=== PATIENT | female | born 1945 | race Caucasian/White ===

== ENCOUNTER 2018-08-11 16:44 | Observation (INO) | payer MEDICARE ==
[2018-08-11] MEDS ORDERED: Sodium Chloride 0.9% 2.5 ML Syringe FLUSH PRN (16:52)
[2018-08-11] MEDS ORDERED: Sodium Chloride 0.9% 10 ML Syringe FLUSH PRN (16:52)
[2018-08-11] MEDS ORDERED: Sodium Chloride 0.9% 10 ML SDV IV PRN (16:52)
--- NOTE | 2018-08-11 17:03 | EDM.PDOC ---
ED HPI GENERAL MEDICAL PROBLEM - General Chief Complaint: Lower Extremity Injury/Pain Stated Complaint: TOE CHANGING COLORS Time Seen by Provider: 08/11/18 16:47 Source of Information: Reports: Patient History Limitations: Reports: No Limitations - History of Present Illness INITIAL COMMENTS - FREE TEXT/NARRATIVE: HISTORY AND PHYSICAL: Stroke code was called upon patient arrival. Dr Torres was involved in patient care. History of present illness: Patient is a 73-year-old female who presents to the emergency room with complaints of right sided facial and right upper extremity tingling/decreased sensation, feeling tremulous increased forgetfulness, and slurred speech x 2 days. Patient initially came for complaints of a bruise of the right second distal toe. Patient's sister, who is accompanied the patient, suggested she also be evaluated for the tingling sensation and decreased sensation of her right side. Denies any injury, trauma or falls. States she is under a lot of stress recently: just came from [place] (primary residence), has had multiple deaths in the family, and other family issues. Patient denies any fever, chills, headache, change in vision, syncope or near syncope. Denies any chest pain, back pain, shortness of breath or cough. Denies any abdominal pain, nausea, vomiting, diarrhea, constipation or dysuria. Patient has been eating and drinking appropriately. Past medical history of hypertension, DM 2, and depression. Review of systems: As per history of present illness and below otherwise all systems reviewed and negative. Past medical history: As per history of present illness and as reviewed below otherwise noncontributory. Surgical history: As per history of present illness and as reviewed below otherwise noncontributory. Social history: See social history for further information Family history: As per history of present illness and as reviewed below otherwise noncontributory. Physical exam: General: Well-developed and well-nourished 73-year-old female. Alert and oriented. Nontoxic appearing and in no acute distress. HEENT: Atraumatic, normocephalic, pupils equal and reactive bilaterally, negative for conjunctival pallor or scleral icterus, mucous membranes moist, TMs normal bilaterally, throat clear, neck supple, nontender, trachea midline. No drooling or trismus noted. No meningeal signs. No hot potato voice noted. Lungs: Clear to auscultation, breath sounds equal bilaterally, chest nontender. Heart: S1S2, regular rate and rhythm without overt murmur Abdomen: Soft, nondistended, nontender. Negative for masses or hepatosplenomegaly. Negative for costovertebral tenderness. Pelvis: Stable nontender. Genitourinary: Deferred. Rectal: Deferred. Skin: Intact, warm, dry. No lesions or rashes noted. Extremities: Atraumatic, moves all extremities per self without difficulty or deficits, patient is fully ambulatory without any difficulty or ataxia. Neurovascular unremarkable. Neuro: Awake, alert, oriented. Cranial nerves II through XII unremarkable. Cerebellum unremarkable. Motor and sensory unremarkable throughout. Exam nonfocal. Notes: GCS: 15. NIH 1 (peripheral visual change of right side). Vital signs are stable. Negative head CT. Patient does have a urinary tract infection and a slightly elevated BUN and creatinine. IV fluids and antibiotics are running. Dr. Lama was consulted on this case and he is agreeable to observing this patient overnight with telemetry. Patient is aware and agreeable to plan of care. Diagnostics: CBC, CMP, PT/INR, UA, TSH, head CT, one view chest, right second toe x-ray Therapeutics: Normal saline, Rocephin Impression: UTI TIA Plan: Observation admission with Telemetry Definitive disposition and diagnosis as appropriate pending reevaluation and review of above. Right Toe-Middle Pain Score (Numeric/FACES): 6 - Related Data Home Meds: Home Meds Allopurinol [Zyloprim] 100 mg PO DAILY 08/11/18 [History] Aspirin 81 mg PO DAILY 08/11/18 [History] Cholecalciferol (Vitamin D3) [Vitamin D] 5,000 unit PO DAILY 08/11/18 [History] Docusate Sodium 100 mg PO DAILY 08/11/18 [History] Dulaglutide [Trulicity] 1.5 mg SQ DAILY 08/11/18 [History] Estrogens, Conjugated [Premarin] 0.625 mg PO DAILY 08/11/18 [History] Fluticasone Propion/Salmeterol [Fluticasone-Salmeterol 100-50] 1 each IH DAILY 08/11/18 [History] Furosemide [Lasix] 20 mg PO DAILY 08/11/18 [History] Levothyroxine 75 mcg PO ACBREAKFAST 08/11/18 [History] Losartan [Cozaar] 50 mg PO DAILY 08/11/18 [History] Mirabegron [Myrbetriq] 25 mg PO DAILY 08/11/18 [History] Omeprazole 20 mg PO DAILY 08/11/18 [History] Potassium Chloride 10 meq PO DAILY 08/11/18 [History] Sertraline [Zoloft] 100 mg PO DAILY 08/11/18 [History] Simvastatin [Zocor] 40 mg PO BEDTIME 08/11/18 [History] Valsartan 160 mg PO DAILY 08/11/18 [History] Valsartan/Hydrochlorothiazide [Valsartan-Hctz 160-25 mg Tab] 1 each PO DAILY [History] buPROPion [Wellbutrin SR] 150 mg PO DAILY 08/11/18 [History] hydroCHLOROthiazide [Hydrochlorothiazide] 25 mg PO DAILY 08/11/18 [History] metFORMIN [Glucophage XR] 750 mg PO DAILY 08/11/18 [History] Review of Systems - Review of Systems Review Of Systems: ROS reveals no pertinent complaints other than HPI. ED EXAM, GENERAL - Physical Exam Exam: See Below (See dictation) Course - Vital Signs Last Recorded V/S: Last Vital Signs Temp 98.1 F 08/11/18 17:14 Pulse 106 H 08/11/18 17:14 Resp 18 08/11/18 17:14 BP 154/80 H 08/11/18 17:14 Pulse Ox 94 L 08/11/18 17:14 - Orders/Labs/Meds Orders: Active Orders 24 hr Category Date Time Status Admission Status [Patient Status] [ADT] Stat ADT 08/11/18 18:06 Ordered Assess Neurological Status [RC] ASDIRECTED Care 08/11/18 16:52 Active EKG Documentation Completion [RC] STAT Care 08/11/18 16:52 Active Initiate Acute Stroke Protocol [RC] STAT Care 08/11/18 16:52 Active NIH Stroke Scale [RC] ASDIRECTED Care 08/11/18 16:52 Active Oxygen Therapy [RC] ASDIRECTED Care 08/11/18 16:52 Active Sodium Chloride 0.9% [Normal Saline] Med 08/11/18 16:52 Active 10 ml IV ASDIRECTED PRN Sodium Chloride 0.9% [Normal Saline] 1,000 ml Med 08/11/18 17:40 Active IV STAT Sodium Chloride 0.9% [Saline Flush] Med 08/11/18 16:52 Active 10 ml FLUSH ASDIRECTED PRN Sodium Chloride 0.9% [Saline Flush] Med 08/11/18 16:52 Active 2.5 ml FLUSH ASDIRECTED PRN cefTRIAXone [Rocephin in Dextrose,Iso-Osm 1 GM/50 ML] 1 Med 08/11/18 18:06 Ordered gm Premix Bag 1 bag IV ONETIME Peripheral IV Insertion Adult [OM.PC] Stat Oth 08/11/18 16:52 Ordered Medication Orders Sodium Chloride (Normal Saline) 1,000 mls @ 100 mls/hr IV STAT ONE Stop: 08/12/18 03:39 Ceftriaxone Sodium/Dextrose 1 (gm/ Premix) 50 mls @ 100 mls/hr IV ONETIME ONE Stop: 08/11/18 18:35 Sodium Chloride (Saline Flush) 10 ml FLUSH ASDIRECTED PRN PRN Reason: Keep Vein Open Sodium Chloride (Saline Flush) 2.5 ml FLUSH ASDIRECTED PRN PRN Reason: Keep Vein Open Sodium Chloride (Normal Saline) 10 ml IV ASDIRECTED PRN PRN Reason: IV Use Labs: Laboratory Tests 08/11/18 08/11/18 08/11/18 Range/Units 16:53 16:53 16:53 WBC 10.82 (4.0-11.0) K/uL RBC 4.36 (4.30-5.90) M/uL Hgb 13.0 (12.0-16.0) g/dL Hct 39.4 (36.0-46.0) % MCV 90.4 (80.0-98.0) fL MCH 29.8 (27.0-32.0) pg MCHC 33.0 (31.0-37.0) g/dL RDW Std Deviation 50.9 (28.0-62.0) fl RDW Coeff of Trey 16 H (11.0-15.0) % Plt Count 301 (150-400) K/uL MPV 9.70 (7.40-12.00) fL Neut % (Auto) 57.6 (48.0-80.0) % Lymph % (Auto) 32.4 (16.0-40.0) % Bledsoe % (Auto) 6.9 (0.0-15.0) % Eos % (Auto) 2.7 (0.0-7.0) % Baso % (Auto) 0.4 (0.0-1.5) % Neut # (Auto) 6.2 H (1.4-5.7) K/uL Lymph # (Auto) 3.5 H (0.6-2.4) K/uL B[place]soe # (Auto) 0.8 (0.0-0.8) K/uL Eos # (Auto) 0.3 (0.0-0.7) K/uL Baso # (Auto) 0.0 (0.0-0.1) K/uL Nucleated RBC % 0.0 /100WBC Nucleated RBCs # 0 K/uL INR 0.95 APTT 25.0 (18.6-31.3) SEC Sodium 142 (136-145) mmol/L Potassium 3.5 (3.5-5.1) mmol/L Chloride 105 (98-107) mmol/L Carbon Dioxide 22.5 (21.0-32.0) mmol/L BUN 39 H (7.0-18.0) mg/dL Creatinine 1.5 H (0.6-1.0) mg/dL Est Cr Clr Drug Dosing 24.35 mL/min Estimated GFR (MDRD) 34.1 ml/min Glucose 129 H (74-106) mg/dL Calcium 9.8 (8.5-10.1) mg/dL Total Bilirubin 0.2 (0.2-1.0) mg/dL AST 19 (15-37) IU/L ALT 20 (14-63) IU/L Alkaline Phosphatase 125 H (46-116) U/L Troponin I < 0.050 (0.000-0.056) ng/mL Total Protein 8.1 (6.4-8.2) g/dL Albumin 3.7 (3.4-5.0) g/dL Globulin 4.4 H (2.6-4.0) g/dL Albumin/Globulin Ratio 0.8 L (0.9-1.6) TSH 3rd Generation 2.05 (0.36-3.74) uIU/mL Urine Color Urine Appearance Urine pH (5.0-8.0) Ur Specific [place] (1.001-1.035) Urine Protein (NEGATIVE) mg/dL Urine Glucose (UA) (NEGATIVE) mg/dL Urine Ketones (NEGATIVE) mg/dL Urine Occult Blood (NEGATIVE) Urine Nitrite (NEGATIVE) Urine Bilirubin (NEGATIVE) Urine Urobilinogen (<2.0) EU/dL Ur Leukocyte Esterase (NEGATIVE) Urine RBC (0-2/HPF) Urine WBC (0-5/HPF) Ur Epithelial Cells (NONE-FEW) Urine Bacteria (NEGATIVE) 08/11/18 Range/Units 17:44 WBC (4.0-11.0) K/uL RBC (4.30-5.90) M/uL Hgb (12.0-16.0) g/dL Hct (36.0-46.0) % MCV (80.0-98.0) fL MCH (27.0-32.0) pg MCHC (31.0-37.0) g/dL RDW Std Deviation (28.0-62.0) fl RDW Coeff of Trey (11.0-15.0) % Plt Count (150-400) K/uL MPV (7.40-12.00) fL Neut % (Auto) (48.0-80.0) % Lymph % (Auto) (16.0-40.0) % Bledsoe % (Auto) (0.0-15.0) % Eos % (Auto) (0.0-7.0) % Baso % (Auto) (0.0-1.5) % Neut # (Auto) (1.4-5.7) K/uL Lymph # (Auto) (0.6-2.4) K/uL B[place]soe # (Auto) (0.0-0.8) K/uL Eos # (Auto) (0.0-0.7) K/uL Baso # (Auto) (0.0-0.1) K/uL Nucleated RBC % /100WBC Nucleated RBCs # K/uL INR APTT (18.6-31.3) SEC Sodium (136-145) mmol/L Potassium (3.5-5.1) mmol/L Chloride (98-107) mmol/L Carbon Dioxide (21.0-32.0) mmol/L BUN (7.0-18.0) mg/dL Creatinine (0.6-1.0) mg/dL Est Cr Clr Drug Dosing mL/min Estimated GFR (MDRD) ml/min Glucose (74-106) mg/dL Calcium (8.5-10.1) mg/dL Total Bilirubin (0.2-1.0) mg/dL AST (15-37) IU/L ALT (14-63) IU/L Alkaline Phosphatase (46-116) U/L Troponin I (0.000-0.056) ng/mL Total Protein (6.4-8.2) g/dL Albumin (3.4-5.0) g/dL Globulin (2.6-4.0) g/dL Albumin/Globulin Ratio (0.9-1.6) TSH 3rd Generation (0.36-3.74) uIU/mL Urine Color YELLOW Urine Appearance SLT CLOUDY Urine pH 5.5 (5.0-8.0) Ur Specific [place] >= 1.030 (1.001-1.035) Urine Protein NEGATIVE (NEGATIVE) mg/dL Urine Glucose (UA) NEGATIVE (NEGATIVE) mg/dL Urine Ketones NEGATIVE (NEGATIVE) mg/dL Urine Occult Blood NEGATIVE (NEGATIVE) Urine Nitrite POSITIVE H (NEGATIVE) Urine Bilirubin NEGATIVE (NEGATIVE) Urine Urobilinogen 0.2 (<2.0) EU/dL Ur Leukocyte Esterase TRACE H (NEGATIVE) Urine RBC 0-2 (0-2/HPF) Urine WBC 3-7 (0-5/HPF) Ur Epithelial Cells MODERATE (NONE-FEW) Urine Bacteria 4+ H (NEGATIVE) Meds: Medications Generic Name Dose Route Start Last Admin Trade Name Freq PRN Reason Stop Dose Admin Sodium Chloride 1,000 mls @ 100 mls/hr 08/11/18 17:40 Normal Saline IV 08/12/18 03:39 STAT ONE Ceftriaxone Sodium/Dextrose 1 50 mls @ 100 mls/hr 08/11/18 18:06 gm/ Premix IV 08/11/18 18:35 ONETIME ONE Sodium Chloride 10 ml 08/11/18 16:52 Saline Flush FLUSH ASDIRECTED PRN Keep Vein Open Sodium Chloride 2.5 ml 08/11/18 16:52 Saline Flush FLUSH ASDIRECTED PRN Keep Vein Open Sodium Chloride 10 ml 08/11/18 16:52 Normal Saline IV ASDIRECTED PRN IV Use Departure - Departure Time of Disposition: 18:08 Disposition: Refer to Observation Clinical Impression: TIA (transient ischemic attack) UTI (urinary tract infection) Qualifiers: Urinary tract infection type: acute cystitis Hematuria presence: without hematuria Qualified Code(s): N30.00 - Acute cystitis without hematuria - Discharge Information Referrals: PCP,None [Primary Care Provider] - Forms: ED Department Discharge - My Orders Last 24 Hours: My Active Orders 08/11/18 16:52 Assess Neurological Status [RC] ASDIRECTED EKG Documentation Completion [RC] STAT Initiate Acute Stroke Protocol [RC] STAT NIH Stroke Scale [RC] ASDIRECTED Oxygen Therapy [RC] ASDIRECTED Sodium Chloride 0.9% [Normal Saline] 10 ml IV ASDIRECTED PRN Sodium Chloride 0.9% [Saline Flush] 10 ml FLUSH ASDIRECTED PRN Sodium Chloride 0.9% [Saline Flush] 2.5 ml FLUSH ASDIRECTED PRN Peripheral IV Insertion Adult [OM.PC] Stat 08/11/18 17:40 Sodium Chloride 0.9% [Normal Saline] 1,000 ml IV STAT 08/11/18 18:06 Admission Status [Patient Status] [ADT] Stat cefTRIAXone [Rocephin in Dextrose,Iso-Osm 1 GM/50 ML] 1 gm Premix Bag 1 bag IV ONETIME - Assessment/Plan Last 24 Hours: My Active Orders 08/11/18 16:52 Assess Neurological Status [RC] ASDIRECTED EKG Documentation Completion [RC] STAT Initiate Acute Stroke Protocol [RC] STAT NIH Stroke Scale [RC] ASDIRECTED Oxygen Therapy [RC] ASDIRECTED Sodium Chloride 0.9% [Normal Saline] 10 ml IV ASDIRECTED PRN Sodium Chloride 0.9% [Saline Flush] 10 ml FLUSH ASDIRECTED PRN Sodium Chloride 0.9% [Saline Flush] 2.5 ml FLUSH ASDIRECTED PRN Peripheral IV Insertion Adult [OM.PC] Stat 08/11/18 17:40 Sodium Chloride 0.9% [Normal Saline] 1,000 ml IV STAT 08/11/18 18:06 Admission Status [Patient Status] [ADT] Stat cefTRIAXone [Rocephin in Dextrose,Iso-Osm 1 GM/50 ML] 1 gm Premix Bag 1 bag IV ONETIME
--- NOTE | 2018-08-11 17:16 | CT ---
INDICATION: Right foot pain and confusion. TECHNIQUE: CT head without contrast. COMPARISON: None. FINDINGS: CSF spaces: Within normal limits for age. Brain parenchyma: The landaverde-white differentiation is normal. No sign of mass, hemorrhage, or midline shift. Skull base and calvarium: The visualized paranasal sinuses and mastoid air cells demonstrate no acute or significant findings. The visualized orbits are grossly unremarkable. No skull fractures. IMPRESSION: Unremarkable noncontrast head CT. Please note that all CT scans at this facility use dose modulation, iterative reconstruction, and/or weight-based dosing when appropriate to reduce radiation dose to as low as reasonably achievable. Dictated by Varinder Napoles MD @ Aug 11 2018 5:11PM Signed by Dr. Varinder Napoles @ Aug 11 2018 5:13PM
--- NOTE | 2018-08-11 17:25 | CR ---
INDICATION: Code stroke, confused. TECHNIQUE: Chest 1 view COMPARISON: None FINDINGS: Cardiovascular and mediastinum: Heart size and vasculature are normal in caliber and appearance. Lungs and pleural spaces: Lungs are clear. No sign of infiltrate or mass. No sign of pleural effusion. No pneumothorax. Bones and soft tissues: Status post right shoulder replacement. IMPRESSION: No acute or significant findings. Dictated by Varinder Napoles MD @ Aug 11 2018 5:23PM Signed by Dr. Varinder Napoles @ Aug 11 2018 5:23PM
--- NOTE | 2018-08-11 17:27 | CR ---
Indication: Toe injury Technique: Three views Comparison: None Findings/Impression: There is an acute nondisplaced fracture at the dorsal base distal phalanx right 2nd toe. 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 Mild adjacent soft tissue swelling. Dictated by Varinder Napoles MD @ Aug 11 2018 5:24PM Signed by Dr. Varinder Napoles @ Aug 11 2018 5:25PM
[2018-08-11 17:37] LABS: CHLORIDE,CL 105 mmol/L (98-107); SODIUM,NA 142 mmol/L (136-145)
[2018-08-11] MEDS ORDERED: Sodium Chloride 0.9% 1,000 ML IV ONE (17:40)
[2018-08-11] MEDS ORDERED: cefTRIAXone 1 GM in Premix Bag 1 BAG IV ONE (18:06)
[2018-08-11] MEDS ORDERED: Acetaminophen 325 MG Tab PO PRN (21:06)
[2018-08-11] MEDS ORDERED: oxyCODONE 5 MG Tab PO PRN (21:07)
--- NOTE | 2018-08-12 01:20 | PCM.HP ---
H&P History of Present Illness - General Date of Service: 08/12/18 Admit Problem/Dx: Admission Diagnosis/Problem Admission Diagnosis/Problem UTI, Urinary tract infectious disease Source of Information: Patient History Limitations: Reports: No Limitations - History of Present Illness Initial Comments - Free Text/Narative: The patient is a 73-year-old lady who presented to the emergency room primarily complaining of right-sided facial and right upper extremity tingling and decreased sensation. Patient's family also reported that there was some concern with slurred speech for 2 days. The patient also had complaining of right second toe hurting and discolored from an injury that she does not remember. The patient is dealing with multi stressors including in the family. Both the patient and the patient's family were concerned about possible stroke symptoms. The patient also had been noted to have urinary tract infection along with an acute nondisplaced fracture dorsal base of the distal phalanx of the right second toe. The patient has been previously diagnosed with diabetes and hypertension. Onset of Symptoms: Reports: Sudden Duration of Symptoms: Reports: Day(s): Location: Reports: Head, Chest Quality: Reports: Dull Severity: Mild Improves with: Reports: None Worsens with: Reports: None Associated Symptoms: Reports: No Other Symptoms Right Toe-Middle Pain Score (Numeric/FACES): 4 - Related Data Allergies/Adverse Reactions: Allergies Allergy/AdvReac Type Severity Reaction Status Date / Time amoxicillin Allergy Mouth Sores Verified 08/11/18 18:30 cefuroxime Allergy Hallucinati Verified 08/11/18 18:30 ons lansoprazole [From Prevacid] Allergy Diarrhea Verified 08/11/18 18:30 Home Medications: Home Meds Allopurinol [Zyloprim] 100 mg PO DAILY 08/11/18 [History] Aspirin 81 mg PO DAILY 08/11/18 [History] Cholecalciferol (Vitamin D3) [Vitamin D] 5,000 unit PO DAILY 08/11/18 [History] Docusate Sodium 100 mg PO DAILY 08/11/18 [History] Dulaglutide [Trulicity] 1.5 mg SQ DAILY 08/11/18 [History] Estrogens, Conjugated [Premarin] 0.625 mg PO DAILY 08/11/18 [History] Fluticasone Propion/Salmeterol [Fluticasone-Salmeterol 100-50] 1 each IH DAILY 08/11/18 [History] Furosemide [Lasix] 20 mg PO DAILY 08/11/18 [History] Levothyroxine 75 mcg PO ACBREAKFAST 08/11/18 [History] Losartan [Cozaar] 50 mg PO DAILY 08/11/18 [History] Omeprazole 20 mg PO DAILY 08/11/18 [History] Potassium Chloride 10 meq PO DAILY 08/11/18 [History] Sertraline [Zoloft] 100 mg PO DAILY 08/11/18 [History] Simvastatin [Zocor] 40 mg PO BEDTIME 08/11/18 [History] Valsartan 160 mg PO DAILY 08/11/18 [History] Valsartan/Hydrochlorothiazide [Valsartan-Hctz 160-25 mg Tab] 1 each PO DAILY [History] buPROPion [Wellbutrin SR] 150 mg PO DAILY 08/11/18 [History] hydroCHLOROthiazide [Hydrochlorothiazide] 25 mg PO DAILY 08/11/18 [History] metFORMIN [Glucophage XR] 750 mg PO DAILY 08/11/18 [History] Cefdinir [Omnicef] 300 mg PO BID #10 cap 08/12/18 [Rx] Fesoterodine Fumarate [Toviaz] 4 mg PO BEDTIME 08/12/18 [History] Mirabegron 25 mg PO DAILY 08/12/18 [Rx] Past Medical History Cardiovascular History: Reports: Hypertension Respiratory History: Reports: Asthma, COPD Gastrointestinal History: Reports: None Genitourinary History: Reports: None Other Genitourinary History: Bladder repair Musculoskeletal History: Reports: None Neurological History: Reports: None Psychiatric History: Reports: Depression Endocrine/Metabolic History: Reports: Diabetes, Type II Hematologic History: Reports: None Oncologic (Cancer) History: Reports: None - Infectious Disease History Infectious Disease History: Reports: Chicken Pox, Measles, Mumps - Past Surgical History Head Surgeries/Procedures: Reports: None HEENT Surgical History: Reports: Oral Surgery GI Surgical History: Reports: Cholecystectomy Female Surgical History: Reports: Hysterectomy Other Musculoskeletal Surgeries/Procedures:: Rt 2nd toe repair Social & Family History - Family History Family Medical History: Noncontributory - Tobacco Use Smoking Status *Q: Former Smoker Years of Tobacco use: 35 Packs/Tins Daily: 1 Used Tobacco, but Quit: Yes Month/Year Tobacco Last Used: 1 yr ago Second Hand Smoke Exposure: No - Caffeine Use Caffeine Use: Reports: Coffee, Soda, Tea - Recreational Drug Use Recreational Drug Use: No - Living Situation & Occupation Living situation: Reports: Occupation: Retired H&P Review of Systems - Review of Systems: Review Of Systems: See Below General: Reports: No Symptoms HEENT: Reports: No Symptoms Pulmonary: Reports: No Symptoms Cardiovascular: Reports: No Symptoms Gastrointestinal: Reports: No Symptoms Genitourinary: Reports: No Symptoms Musculoskeletal: Reports: No Symptoms Skin: Reports: No Symptoms Psychiatric: Reports: No Symptoms Neurological: Reports: No Symptoms Hematologic/Lymphatic: Reports: No Symptoms Immunologic: Reports: No Symptoms Exam - Exam Exam: See Below - Vital Signs Vital Signs: Last Vital Signs Temp 35.8 C 08/12/18 00:00 Pulse 89 08/12/18 00:00 Resp 17 08/12/18 00:00 BP 97/56 L 08/12/18 00:00 Pulse Ox 92 L 08/12/18 00:00 Weight: 88.706 kg - Exam Quality Assessment: No: Supplemental Oxygen General: Alert, Oriented, Cooperative HEENT: Conjunctiva Clear, EACs Clear, EOMI, Mucosa Moist & [place], Pupils Equal, PERRLA Neck: Supple, Trachea Midline Lungs: Clear to Auscultation, Normal Respiratory Effort Cardiovascular: Regular Rate, Regular Rhythm GI/Abdominal Exam: Normal Bowel Sounds, Soft, No Distention. No: Guarding, Rigid, Rebound Back Exam: Normal Inspection, Full Range of Motion Extremities: Normal Inspection, Normal Range of Motion, No Pedal Edema Skin: Warm, Dry, Intact Neurological: Cranial Nerves Intact, Strength Equal Bilateral, Normal Gait, Normal Speech Neuro Extensive - Mental Status: Alert, Oriented x3 Psychiatric: Alert, Normal Affect, Normal Mood - Patient Data Lab Results Last 24 hrs: Laboratory Results - last 24 hr 08/11/18 08/11/18 08/11/18 Range/Units 16:53 16:53 16:53 WBC 10.82 (4.0-11.0) K/uL RBC 4.36 (4.30-5.90) M/uL Hgb 13.0 (12.0-16.0) g/dL Hct 39.4 (36.0-46.0) % MCV 90.4 (80.0-98.0) fL MCH 29.8 (27.0-32.0) pg MCHC 33.0 (31.0-37.0) g/dL RDW Std Deviation 50.9 (28.0-62.0) fl RDW Coeff of Trey 16 H (11.0-15.0) % Plt Count 301 (150-400) K/uL MPV 9.70 (7.40-12.00) fL Neut % (Auto) 57.6 (48.0-80.0) % Lymph % (Auto) 32.4 (16.0-40.0) % [place] % (Auto) 6.9 (0.0-15.0) % Eos % (Auto) 2.7 (0.0-7.0) % Baso % (Auto) 0.4 (0.0-1.5) % Neut # (Auto) 6.2 H (1.4-5.7) K/uL Lymph # (Auto) 3.5 H (0.6-2.4) K/uL [place] # (Auto) 0.8 (0.0-0.8) K/uL Eos # (Auto) 0.3 (0.0-0.7) K/uL Baso # (Auto) 0.0 (0.0-0.1) K/uL Nucleated RBC % 0.0 /100WBC Nucleated RBCs # 0 K/uL INR 0.95 APTT 25.0 (18.6-31.3) SEC Sodium 142 (136-145) mmol/L Potassium 3.5 (3.5-5.1) mmol/L Chloride 105 (98-107) mmol/L Carbon Dioxide 22.5 (21.0-32.0) mmol/L BUN 39 H (7.0-18.0) mg/dL Creatinine 1.5 H (0.6-1.0) mg/dL Est Cr Clr Drug Dosing 24.35 mL/min Estimated GFR (MDRD) 34.1 ml/min Glucose 129 H (74-106) mg/dL POC Glucose (60-110) mg/dL Calcium 9.8 (8.5-10.1) mg/dL Total Bilirubin 0.2 (0.2-1.0) mg/dL AST 19 (15-37) IU/L ALT 20 (14-63) IU/L Alkaline Phosphatase 125 H (46-116) U/L Troponin I < 0.050 (0.000-0.056) ng/mL Total Protein 8.1 (6.4-8.2) g/dL Albumin 3.7 (3.4-5.0) g/dL Globulin 4.4 H (2.6-4.0) g/dL Albumin/Globulin Ratio 0.8 L (0.9-1.6) TSH 3rd Generation 2.05 (0.36-3.74) uIU/mL Urine Color Urine Appearance Urine pH (5.0-8.0) Ur Specific [place] (1.001-1.035) Urine Protein (NEGATIVE) mg/dL Urine Glucose (UA) (NEGATIVE) mg/dL Urine Ketones (NEGATIVE) mg/dL Urine Occult Blood (NEGATIVE) Urine Nitrite (NEGATIVE) Urine Bilirubin (NEGATIVE) Urine Urobilinogen (<2.0) EU/dL Ur Leukocyte Esterase (NEGATIVE) Urine RBC (0-2/HPF) Urine WBC (0-5/HPF) Ur Epithelial Cells (NONE-FEW) Urine Bacteria (NEGATIVE) 08/11/18 08/11/18 Range/Units 17:44 21:24 WBC (4.0-11.0) K/uL RBC (4.30-5.90) M/uL Hgb (12.0-16.0) g/dL Hct (36.0-46.0) % MCV (80.0-98.0) fL MCH (27.0-32.0) pg MCHC (31.0-37.0) g/dL RDW Std Deviation (28.0-62.0) fl RDW Coeff of Trey (11.0-15.0) % Plt Count (150-400) K/uL MPV (7.40-12.00) fL Neut % (Auto) (48.0-80.0) % Lymph % (Auto) (16.0-40.0) % [place] % (Auto) (0.0-15.0) % Eos % (Auto) (0.0-7.0) % Baso % (Auto) (0.0-1.5) % Neut # (Auto) (1.4-5.7) K/uL Lymph # (Auto) (0.6-2.4) K/uL [place] # (Auto) (0.0-0.8) K/uL Eos # (Auto) (0.0-0.7) K/uL Baso # (Auto) (0.0-0.1) K/uL Nucleated RBC % /100WBC Nucleated RBCs # K/uL INR APTT (18.6-31.3) SEC Sodium (136-145) mmol/L Potassium (3.5-5.1) mmol/L Chloride (98-107) mmol/L Carbon Dioxide (21.0-32.0) mmol/L BUN (7.0-18.0) mg/dL Creatinine (0.6-1.0) mg/dL Est Cr Clr Drug Dosing mL/min Estimated GFR (MDRD) ml/min Glucose (74-106) mg/dL POC Glucose 135 H (60-110) mg/dL Calcium (8.5-10.1) mg/dL Total Bilirubin (0.2-1.0) mg/dL AST (15-37) IU/L ALT (14-63) IU/L Alkaline Phosphatase (46-116) U/L Troponin I (0.000-0.056) ng/mL Total Protein (6.4-8.2) g/dL Albumin (3.4-5.0) g/dL Globulin (2.6-4.0) g/dL Albumin/Globulin Ratio (0.9-1.6) TSH 3rd Generation (0.36-3.74) uIU/mL Urine Color YELLOW Urine Appearance SLT CLOUDY Urine pH 5.5 (5.0-8.0) Ur Specific [place] >= 1.030 (1.001-1.035) Urine Protein NEGATIVE (NEGATIVE) mg/dL Urine Glucose (UA) NEGATIVE (NEGATIVE) mg/dL Urine Ketones NEGATIVE (NEGATIVE) mg/dL Urine Occult Blood NEGATIVE (NEGATIVE) Urine Nitrite POSITIVE H (NEGATIVE) Urine Bilirubin NEGATIVE (NEGATIVE) Urine Urobilinogen 0.2 (<2.0) EU/dL Ur Leukocyte Esterase TRACE H (NEGATIVE) Urine RBC 0-2 (0-2/HPF) Urine WBC 3-7 (0-5/HPF) Ur Epithelial Cells MODERATE (NONE-FEW) Urine Bacteria 4+ H (NEGATIVE) Result Diagrams: 08/12/18 05:54 08/12/18 05:54 - Problem List (1) UTI (urinary tract infection) SNOMED Code(s): 53034338 ICD Code: N39.0 - URINARY TRACT INFECTION, SITE NOT SPECIFIED Status: Acute Priority: High Current Visit: Yes Qualifiers: Urinary tract infection type: acute cystitis Hematuria presence: without hematuria Qualified Code(s): N30.00 - Acute cystitis without hematuria (2) TIA (transient ischemic attack) SNOMED Code(s): 209130856 ICD Code: G45.9 - TRANSIENT CEREBRAL ISCHEMIC ATTACK, UNSPECIFIED Status: Ruled-out Priority: High Current Visit: Yes (3) Dyslipidemia SNOMED Code(s): 674713670 ICD Code: E78.5 - HYPERLIPIDEMIA, UNSPECIFIED Status: Chronic Priority: Medium Current Visit: Yes (4) Hypertension SNOMED Code(s): 64587642 ICD Code: I10 - ESSENTIAL (PRIMARY) HYPERTENSION Status: Chronic Priority : Medium Current Visit: Yes Qualifiers: Hypertension type: essential hypertension Qualified Code(s): I10 - Essential (primary) hypertension (5) Gout SNOMED Code(s): 30231897 ICD Code: M10.9 - GOUT, UNSPECIFIED Status: Chronic Priority: Low Current Visit: Yes Qualifiers: Gout site: unspecified site Gout etiology: unspecified cause Chronicity: chronic Presence of tophus: without tophus Qualified Code(s): M1A.9XX0 - Chronic gout, unspecified, without tophus (tophi) (6) Diabetes mellitus type 2 in obese SNOMED Code(s): 28635886 ICD Code: E11.69 - TYPE 2 DIABETES MELLITUS WITH OTHER SPECIFIED COMPLICATION ; E66.9 - OBESITY, UNSPECIFIED Status: Chronic Priority: Medium Current Visit: Yes (7) Toe fracture, right SNOMED Code(s): 78909863 ICD Code: S92.911A - UNSP FRACTURE OF RIGHT TOE(S), INIT FOR CLOS FX Status : Acute Priority: Medium Current Visit: Yes Qualifiers: Encounter type: subsequent encounter Toe: lesser toe Fracture type: closed Phalanx: middle Fracture alignment: nondisplaced Fracture healing: with routine healing Qualified Code(s): S92.524D - Nondisplaced fracture of middle phalanx of right lesser toe(s), subsequent encounter for fracture with routine healing Problem List Initiated/Reviewed/Updated: Yes Orders Last 24hrs: Active Orders 24 hr Category Date Time Status Admission Status [Patient Status] [ADT] Stat ADT 08/11/18 18:06 Active Blood Glucose Check, Bedside [RC] TIDAC Care 08/11/18 20:30 Active EKG Documentation Completion [RC] STAT Care 08/11/18 16:52 Active Initiate Acute Stroke Protocol [RC] STAT Care 08/11/18 16:52 Active NIH Stroke Scale [RC] ASDIRECTED Care 08/11/18 16:52 Active NIH Stroke Scale [RC] Q4HR Care 08/11/18 20:30 Active Telemetry Monitoring [Cardiac Monitoring] [RC] Q8H Care 08/11/18 21:05 Active ADA Diabetic [[place] Diet] [DIET Diet 08/12/18 Breakfast Active ] Ang Head [CT] Routine Exams 08/11/18 21:08 Ordered CTA Neck W & W/O Contrast [Ang Neck] [CT] Routine Exams 08/11/18 21:08 Ordered BASIC METABOLIC PANEL,BMP [CHEM] Routine Lab 08/12/18 05:11 Ordered CBC WITH AUTO DIFF [HEME] Routine Lab 08/12/18 05:11 Ordered Acetaminophen [Tylenol] Med 08/11/18 21:06 Active 650 mg PO Q6H PRN Insulin Aspart [NovoLOG] Med 08/12/18 07:30 Active See Protocol SUBCUT TIDAC Sodium Chloride 0.9% [Normal Saline] Med 08/11/18 16:52 Active 10 ml IV ASDIRECTED PRN Sodium Chloride 0.9% [Saline Flush] Med 08/11/18 16:52 Active 10 ml FLUSH ASDIRECTED PRN Sodium Chloride 0.9% [Saline Flush] Med 08/11/18 16:52 Active 2.5 ml FLUSH ASDIRECTED PRN oxyCODONE Med 08/11/18 21:07 Active 5 mg PO Q4H PRN Convert IV to Saline Lock [OM.PC] Routine Oth 08/11/18 21:10 Ordered Peripheral IV Insertion Adult [OM.PC] Stat Oth 08/11/18 16:52 Ordered Medication Orders Acetaminophen (Tylenol) 650 mg PO Q6H PRN PRN Reason: Pain Insulin Aspart (Novolog) 0 unit SUBCUT TIDAC KENNEDY; Protocol Oxycodone HCl (Oxycodone) 5 mg PO Q4H PRN PRN Reason: Pain Sodium Chloride (Saline Flush) 10 ml FLUSH ASDIRECTED PRN PRN Reason: Keep Vein Open Sodium Chloride (Saline Flush) 2.5 ml FLUSH ASDIRECTED PRN PRN Reason: Keep Vein Open Sodium Chloride (Normal Saline) 10 ml IV ASDIRECTED PRN PRN Reason: IV Use Assessment/Plan Comment:: The patient is a 73-year-old lady who is doing very well and has tolerated her short course of hospitalization. The patient also had been given a hard soled postoperative shoe for her toe fracture. She has remained hemodynamically stable. The patient initially had been placed on Rocephin for her urinary tract infection and she's been discharged with Ceftin are 300 mg by mouth twice a day. The patient has been recommended to continue with all of her medications including for her diabetes and hypertensive 2. The patient is to follow-up with her primary care physician with regards to her obesity and dyslipidemia. The patient had a preliminary report from a CTA of her head and neck which showed no high-grade stenosis of large vessel occlusion with intracranial arteries. She did have moderate stenosis of the left cervical anterior carotid artery origin. The patient has been recommended to continue with her simvastatin for secondary stroke prevention. She is also taking low-dose aspirin initially be continued. The patient had otherwise been hemodynamically stable. She has been feeling like she can go home. The patient has been recommended continue with her diet as tolerated. She also has to have activity as tolerated. The patient has been discharged from acute hospitalization with recommendations listed above. This history of physical will also serve as a discharge summary.
[2018-08-12] MEDS ORDERED: cefTRIAXone 1 GM in Sodium Chloride 0.9% 50 ML IV SCH ×2 (01:30→18:00)
[2018-08-12] MEDS ORDERED: Heparin Sodium 5,000 Units/ML Vial SUBCUT SCH ×2 (01:30→06:00)
[2018-08-12] MEDS ORDERED: Sodium Chloride 0.9% 1,000 ML IV SCH (07:15)
[2018-08-12] MEDS ORDERED: Levothyroxine 75 MCG Tab PO SCH (07:30)
[2018-08-12] MEDS ORDERED: Omeprazole 20 MG Cap.CR PO SCH (07:30)
[2018-08-12] MEDS: Insulin Aspart 100 Units/ML 3 ML Pen SUBCUT SCH ×2 (07:54→12:11)
[2018-08-12] MEDS ORDERED: Iopamidol 755 MG/ML 500 ML Multipack Bottle IVPUSH STA (08:52)
[2018-08-12] MEDS ORDERED: Non-Formulary Medication 1 Each (Mirabegron 25 MG) PO SCH (09:00)
[2018-08-12] MEDS ORDERED: buPROPion 150 MG Tab.SR PO SCH (09:00)
[2018-08-12] MEDS ORDERED: Hydrochlorothiazide 25 MG Tab PO SCH ×2 (09:00)
[2018-08-12] MEDS ORDERED: Aspirin 81 MG Tab.Chew PO SCH (09:00)
[2018-08-12] MEDS ORDERED: Potassium Chloride 10 MEQ Tab.ER PO SCH (09:00)
[2018-08-12] MEDS ORDERED: Allopurinol 100 MG Tab PO SCH (09:00)
[2018-08-12] MEDS ORDERED: Losartan 50 MG Tab PO SCH (09:00)
[2018-08-12] MEDS ORDERED: METFORMIN 750 MG PO SCH (09:00)
[2018-08-12] MEDS ORDERED: Furosemide 20 MG Tab PO SCH (09:00)
[2018-08-12] MEDS ORDERED: Fluticasone/Salmeterol 100-50 MCG Inhalation Powder 14/Diskus INH SCH (09:00)
[2018-08-12] MEDS: Sertraline 100 MG Tab PO SCH ×2 (09:31→09:36)
--- NOTE | 2018-08-12 09:37 | CT ---
INDICATION: Paresthesias. TECHNIQUE: High resolution axial CT images acquired through the head and neck following rapid intravenous administration of iodinated contrast. Multiplanar MIPS of cranial and cervical vasculature performed. COMPARISON: Noncontrast head CT 08/11/2018. FINDINGS: CTA head: There is normal filling of the intracranial vasculature; i.e. there is no large vessel occlusion or significant intracranial stenosis. There is no cerebral aneurysm or evidence for vascular malformation. The underlying brain parenchyma is unremarkable at CTA. CTA neck: A large soft irregular plaque is present in the proximal left ICA resulting in a 60 percent stenosis by NASCET criteria. There is also atherosclerotic plaque in the proximal right ICA without significant stenosis. The vertebral arteries are patent. There is no evidence for dissection. The soft tissues of the neck are within normal limits. The cervical spine is in normal alignment. Degenerative changes are noted in the cervical spine. The lung apices are clear. IMPRESSION: No large vessel occlusion. Moderate proximal left ICA stenosis, 60 percent by NASCET criteria. Aydin Mercado MD [facility] Please note that all CT scans at this facility use dose modulation, iterative reconstruction, and/or weight-based dosing when appropriate to reduce radiation dose to as low as reasonably achievable. Dictated by Aydin Mercado MD @ Aug 12 2018 9:44AM Signed by Dr. Aydin Mercado @ Aug 12 2018 9:46AM
[2018-08-12] MEDS ORDERED: Sertraline 100 MG Tab PO SCH (21:00)
[2018-08-12] MEDS ORDERED: Simvastatin 40 MG Tab PO SCH (21:00)
== END 2018-08-12 13:00 | disposition home or self-care (01) ==
LOC: MW.ED 16:44 → MW.MS 18:35
PROVIDERS: ADMIT Internal Medicine; ATTEND Internal Medicine
DX: N30.00 Acute cystitis without hematuria (principal); G45.9 Transient cerebral ischemic attack, unspecified; E78.5 Hyperlipidemia, unspecified; I10 Essential (primary) hypertension; E11.69 Type 2 diabetes mellitus with other specified complication; S92.524D Nondisplaced fracture of middle phalanx of right lesser toe(s), subsequent encounter for fracture with routine healing; E66.9 Obesity, unspecified; Z68.39 Body mass index [BMI] 39.0-39.9, adult; M1A.9XX0 Chronic gout, unspecified, without tophus (tophi); F32.9 Major depressive disorder, single episode, unspecified; J44.9 Chronic obstructive pulmonary disease, unspecified; Z88.0 Allergy status to penicillin; Z88.1 Allergy status to other antibiotic agents; Z88.8 Allergy status to other drugs, medicaments and biological substances; Z79.82 Long term (current) use of aspirin; Z79.84 Long term (current) use of oral hypoglycemic drugs; Z79.899 Other long term (current) drug therapy; Z98.890 Other specified postprocedural states; Z87.891 Personal history of nicotine dependence
CPT/HCPCS: 36415; 70450; 70496; 70498; 71045; 73660; 80048; 80053; 81001; 82962; 84443; 84484; 85025; 85610; 85730; 93005; 96361; 96365; 96372; 99285; A4217; A9270; G0378; J0696; J1644; J7040; Q9967